=== PATIENT | male | born 1995 | race Caucasian/White ===

== ENCOUNTER 2020-01-18 14:55 | Emergency (ER) | payer BC, SELFPAY ==
[~2020-01-18] VITALS: Ht 180.3 cm; Wt 127.0 kg
[2020-01-18 15:01] VITALS: BP 174/115
[2020-01-18 16:06] VITALS: BP 165/102
== END 2020-01-18 16:06 | disposition home or self-care (01) ==
LOC: EEVIPCON 14:55 → MED 14:55
DX: J06.9 Acute upper respiratory infection, unspecified (principal); Z20.828 Contact with and (suspected) exposure to other viral communicable diseases
CPT/HCPCS: 99283; U0003